=== PATIENT | female | born 1975 | race African-American/Black ===

== ENCOUNTER 2017-12-02 19:57 | Emergency (ER) | payer OTHER ==
[~2017-12-02] VITALS: Ht 165.1 cm; Wt 49.9 kg
--- NOTE | 2017-12-02 20:12 | NUR ---
Pt c/o left foot pain x1 day after tripping in heels.
--- NOTE | 2017-12-02 20:15 | NUR ---
KIMBERLY COLE at bedside for MSE.
--- NOTE | 2017-12-02 20:38 | NUR ---
Xray at pt bedside
--- NOTE | 2017-12-02 22:04 | NUR ---
Pt refused alda wrap per MD order. She stated she had her own that she would rather use.
--- NOTE | 2017-12-02 22:06 | NUR ---
Patient discharged to home in stable conditon. Written and verbal after care instructions given. Patient verbalizes understanding of instructions. No distress noted. Ambulated w/ steady gait w/ own crutches.
[2017-12-02 22:25] VITALS: BP 114/75
== END 2017-12-02 22:26 | disposition home or self-care (01) ==
LOC: ER 20:04
DX: S93.602A Unspecified sprain of left foot, initial encounter (principal); Z88.0 Allergy status to penicillin; X50.1XXA Overexertion from prolonged static or awkward postures, initial encounter; Y93.89 Activity, other specified; Y92.89 Other specified places as the place of occurrence of the external cause; Y99.8 Other external cause status
CPT/HCPCS: 73630; A4663